=== PATIENT | male | born 1980 | race Hispanic/Latino ===

== ENCOUNTER 2018-08-17 10:39 | Emergency (ER) | payer MEDICAID ==
[2018-08-17 11:20] VITALS: BP 133/96
--- NOTE | 2018-08-17 11:21 | Emergency Department Report ---
Blank Doc - Documentation Documentation: This is a 38-year-old male that presents with lower back pain s/p ground level fall. Stated happened in the shower and is uncertain if he loc. Stated has headache. This initial assessment diagnostic orders/clinical plan/treatment(s) is/are subject to change based on patient's health status, clinical progression and re- assessment by fellow clinical providers in the ED. Further treatment and workup at subsequent clinical providers discretion. Patient/guardians urged not to elope from ED s their condition may be serious if not clinically assessed and managed. Initial orders include: 1-Patient sent to [facility] for further evaluation and treatment 2-CT head 3-Xray lower back and left elbow
--- NOTE | 2018-08-17 12:09 | XRay Report ---
LUMBAR SPINE RADIOGRAPHS INDICATION: Pain, status post fall. COMPARISON: None similar. FINDINGS: AP and lateral lumbar spine radiographs demonstrate normal vertebral body stature and alignment. Fairly preserved disc heights, though slight narrowing inferiorly not entirely excluded. Slight degenerative spurring as along the L2 superior endplate as well. Nonobstructive bowel gas pattern. Intact SI joints. Approximately 9 mm right upper renal calculus or gallstone questioned. CONCLUSION: No acute lumbar radiographic abnormality with slight degenerative changes and few other incidental findings, as above. Please correlate. Thank you for the opportunity to participate in this patient's care.
--- NOTE | 2018-08-17 12:11 | XRay Report ---
LEFT ELBOW RADIOGRAPHS INDICATION: Pain, status post fall. COMPARISON: None similar at this institution. FINDINGS: AP, lateral and oblique left elbow radiographs demonstrate intact articulation. No abnormal fat pad sign noted. Radial head appears intact. CONCLUSION: No acute finding. Thank you for the opportunity to participate in this patient's care.
--- NOTE | 2018-08-17 12:22 | Cat Scan Report ---
CT HEAD WITHOUT CONTRAST INDICATION: Headache, fall. COMPARISON: None similar. FINDINGS: Noncontrast head CT demonstrates normal ventricles and sulci. No acute infarct, hemorrhage, mass effect or midline shift. No abnormal extra-axial fluid collections. Normal posterior fossa with preserved basilar cisterns. Moderate bilateral maxillary sinus air-fluid levels. Mild left maxillary sinus mucosal thickening anteriorly as well. Clear remainder imaged paranasal sinuses and mastoid air cells. Slight nasal septal deviation. Normal eye globes. 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 Normal scalp. Left external auditory canal debris may be directly visualized. CONCLUSION: Acute bilateral maxillary sinusitis, as described. Please correlate. Thank you for the opportunity to participate in this patient's care.
[2018-08-17] MEDS ORDERED: IBUPROFEN PO ONE (13:05)
--- NOTE | 2018-08-17 13:15 | Emergency Department Report ---
ED Fall HPI - General Chief Complaint: Pain General Stated Complaint: BODY PAIN Time Seen by Provider: 08/17/18 11:18 Source: patient Mode of arrival: Ambulatory - History of Present Illness Initial Comments: This is a 38-year-old male that presents with ground level fall. Stated tripped and fell in the shower. Stated hit head and is not sure if he had any LOC. Denies any neck pain. Denies any other complaints. Patient denies any chest pain, shortness of breathe, fever, chills, numbness or tingling. Denies any allergies or PMH. MD Complaint: fall -: days(s) Fall From: standing When Fall Occurred: unsure Fall Witnessed: no Place Fall Occurred: home Loss of Consciousness: unsure Prolonged Down Time?: no Symptoms Prior to Fall: none Location: head, back Location - Extremities: Left: Elbow Severity: mild Severity scale (0 -10): 8 Quality: aching Context: tripped/slipped Associated Symptoms: headache. denies: neck pain, numbness, weakness, chest paint, shortness of breath, abdominal pain, hematuria, unable to walk, lightheaded, vertigo, confusion - Related Data Previous Rx's Medication Instructions Recorded Last Taken Type Benzonatate [Tessalon Perles] 100 mg PO Q8HR #20 capsule 06/04/18 Unknown Rx Cetirizine HCl/Pseudoephedrine 1 each PO BID #14 tab.er.12h 06/04/18 Unknown Rx [Zyrtec-D Tablet] Ibuprofen [Motrin] 600 mg PO Q8H PRN #20 tablet 08/17/18 Unknown Rx Allergies Allergy/AdvReac Type Severity Reaction Status Date / Time No Known Allergies Allergy Unverified 06/04/18 11:18 ED Review of Systems ROS: Stated complaint: BODY PAIN Other details as noted in HPI Constitutional: denies: chills, fever Eyes: denies: eye pain, eye discharge, vision change ENT: denies: ear pain, throat pain Respiratory: denies: cough, shortness of breath, wheezing Cardiovascular: denies: chest pain, palpitations Endocrine: no symptoms reported Gastrointestinal: denies: abdominal pain, nausea, diarrhea Genitourinary: denies: urgency, dysuria Musculoskeletal: back pain. denies: joint swelling, arthralgia Skin: denies: rash, lesions Neurological: headache. denies: weakness, paresthesias Psychiatric: denies: anxiety, depression Hematological/Lymphatic: denies: easy bleeding, easy bruising ED Past Medical Hx - Past Medical History Previous Medical History?: Yes Hx Hypertension: Yes Hx Diabetes: Yes Hx Seizures: Yes - Surgical History Past Surgical History?: No - Social History Smoking Status: Never Smoker Substance Use Type: None - Medications Home Medications: Home Medications Medication Instructions Recorded Confirmed Last Taken Type Benzonatate [Tessalon Perles] 100 mg PO Q8HR #20 capsule 06/04/18 Unknown Rx Cetirizine HCl/Pseudoephedrine 1 each PO BID #14 tab.er.12h 06/04/18 Unknown Rx [Zyrtec-D Tablet] Ibuprofen [Motrin] 600 mg PO Q8H PRN #20 tablet 08/17/18 Unknown Rx ED Physical Exam - General Limitations: No Limitations General appearance: alert, in no apparent distress - Head Head exam: Present: atraumatic, normocephalic - Eye Eye exam: Present: normal appearance, PERRL, EOMI - Neck Neck exam: Present: normal inspection, full ROM. Absent: tenderness, meningismus, lymphadenopathy - Respiratory Respiratory exam: Present: normal lung sounds bilaterally. Absent: respiratory distress, wheezes, rales, rhonchi, stridor, chest wall tenderness, accessory muscle use, decreased breath sounds, prolonged expiratory - Cardiovascular Cardiovascular Exam: Present: regular rate, normal rhythm, normal heart sounds. Absent: bradycardia, tachycardia, irregular rhythm, systolic murmur, diastolic murmur, rubs, gallop - Rectal Rectal exam: Present: deferred - Extremities Exam Extremities exam: Present: normal inspection, full ROM, tenderness, normal capillary refill. Absent: joint swelling - Expanded Upper Extremity Exam Left General: Present: normal inspection Shoulder Exam: Present: normal inspection, full ROM. Absent: tenderness Upper Arm exam: Present: normal inspection, full ROM. Absent: tenderness Elbow exam: Present: normal inspection, full ROM, tenderness. Absent: swelling, abrasion, laceration, ecchymosis, deformity, crepidus, dislocation, erythema, effusion, pain w/ pronation/supination, tenderness over radial head Forearm Wrist exam: Present: normal inspection, full ROM. Absent: tenderness Hand Wrist exam: Present: normal inspection, full ROM. Absent: tenderness Vascular: Present: vascular compromise, normal capillary refill - Back Exam Back exam: Present: normal inspection, full ROM, paraspinal tenderness (lumbar paraspinal). Absent: tenderness, CVA tenderness (R), CVA tenderness (L), muscle spasm, vertebral tenderness, rash noted - Expanded Back Exam Expanded Back exam: Absent: saddle anesthesia Back exam: Negative Straight Leg Raising: Left, Right - Neurological Exam Neurological exam: Present: alert, oriented X3, normal gait - Expanded Neurological Exam Expanded Patient oriented to: Present: person, place, time Cranial nerves: EOM's Intact: Normal, Facial Sensation: Normal Cerebellar function: Finger to Nose: Normal Upper motor neuron: Pronator Drift: Normal, Sensory Extinction: Normal Sensory exam: Upper Extremity Light Touch: Normal, Upper Extremity Pin Prick: Normal, Upper Extremity Temperature: Normal, Lower Extremity Light Touch: Normal, Lower Extremity Pin Prick: Normal, Lower Extremity Temperature: Normal Motor strength exam: RUE: 5, LUE: 5, RLE: 5, LLE: 5 Best Eye Response ([place]): (4) open spontaneously Best Motor Response ([place]): (6) obeys commands Best Verbal Response ([place]): (5) oriented [place] Total: 15 - Psychiatric Psychiatric exam: Present: normal affect, normal mood - Skin Skin exam: Present: warm, dry, intact, normal color. Absent: rash ED Course Vital Signs 08/17/18 08/17/18 11:19 13:33 Temperature 98.3 F Pulse Rate 89 Respiratory 16 16 Rate Blood Pressure 133/96 O2 Sat by Pulse 100 Oximetry - Reevaluation(s) Reevaluation #1: 08/17/18 13:14 Patient is speaking in full sentences with no signs of distress noted. ED Medical Decision Making - Medical Decision Making This is a 38-year-old male that presents with fall. Patient is stable and was examined by me. Patient is neurologically stable. There is no stiff neck or n nathalia pain. Vital signs are stable. Patient is afebrile. CT within normal limits and dictated by the radiologist. Xrays unremarkable. Denies any neck or back pain. Patient was referred to Follow-up with a primary care/neurologist doctor in 3-5 days or if symptoms worsen and continue return to emergency room as soon as possible. At time of discharge, the patient does not seem toxic or ill in appearance. No acute signs of distress noted. Patient agrees to discharge treatment plan of care. No further questions noted by the patient. Critical care attestation.: If time is entered above; I have spent that time in minutes in the direct care of this critically ill patient, excluding procedure time. ED Disposition Clinical Impression: Left elbow pain Fall Qualifiers: Encounter type: initial encounter Qualified Code(s): W19.XXXA - Unspecified fall, initial encounter Low back pain Qualifiers: Chronicity: acute Back pain laterality: unspecified Sciatica presence: unspecified whether sciatica present Qualified Code(s): M54.5 - Low back pain Head contusion Qualifiers: Encounter type: initial encounter Contusion of head detail: scalp Qualified Code(s): S00.03XA - Contusion of scalp, initial encounter Disposition: TO HOME OR SELFCARE Is pt being admited?: No Does the pt Need Aspirin: No Condition: Stable Instructions: Fall Prevention for Older Adults (ED) Additional Instructions: Follow-up with a primary care doctor in 3-5 days or if symptoms worsen and cristóbal nue return to emergency room as soon as possible. Prescriptions: Ibuprofen [Motrin] 600 mg PO Q8H PRN #20 tablet PRN Reason: Pain Referrals: PRIMARY CARE, [Referring] - 3-5 Days DESIRE HANDLEY MD [Staff Physician] - 3-5 Days [facility] [Outside] - 3-5 Days Forms: Work/School Release Form(ED)
== END 2018-08-17 14:00 | disposition home or self-care (01) ==
LOC: ED 10:39
DX: S00.03XA Contusion of scalp, initial encounter (principal); M54.5 Low back pain; M25.522 Pain in left elbow; I10 Essential (primary) hypertension; E11.9 Type 2 diabetes mellitus without complications; W18.30XA Fall on same level, unspecified, initial encounter; Y93.89 Activity, other specified; Y92.89 Other specified places as the place of occurrence of the external cause; Y99.8 Other external cause status
CPT/HCPCS: 70450; 72100